=== PATIENT | female | born 1985 | race Caucasian/White ===

== ENCOUNTER 2024-03-21 16:07 | Emergency (ER) | payer MEDICAID ==
[~2024-03-21] VITALS: Ht 157.5 cm; Wt 61.2 kg
[2024-03-21 16:21] VITALS: BP_SYST 138; PULSE 118; RESP 17; TEMP 96.9; O2SAT 98
[2024-03-21 18:00] VITALS: BP_SYST 138; PULSE 118; RESP 17; TEMP 96.9; O2SAT 98
== END 2024-03-21 18:00 | disposition home or self-care (01) ==
LOC: SED 16:07
DX: S00.93XA Contusion of unspecified part of head, initial encounter (principal); Y04.0XXA Assault by unarmed brawl or fight, initial encounter; Y93.89 Activity, other specified; Y92.89 Other specified places as the place of occurrence of the external cause; Y99.8 Other external cause status
CPT/HCPCS: 70450-TC; 72125-TC; 99284